=== PATIENT | female | born 1990 | race Caucasian/White ===

== ENCOUNTER 2018-08-04 17:24 | Emergency (ER) | payer BC ==
[~2018-08-04] VITALS: Ht 157.5 cm; Wt 50.8 kg
[2018-08-04 17:38] VITALS: BP 104/59
[2018-08-04] MEDS ORDERED: NKM (17:42)
--- NOTE | 2018-08-04 17:47 | NUR ---
ED Nurse Note: pt walked in due to neck pain. pt stated that she fell from stair last night and hit her neck. denies LOC. pt. did not feel last night but started having the pain today
--- NOTE | 2018-08-04 18:17 | Emergency Room Report ---
History of Present Illness General Chief Complaint: Multiple Trauma/Fall Source: Patient Present Illness HPI 27 YO old female presents to the emergency department complaining of 8 out of 10 in severity pain to the right side of her neck as well as right-sided upper back status post mechanical slip and fall yesterday. Patient reports that when she fell she slipped going down some stairs and landed on her back on the stairs. Patient reports previous history of C3-C4 injury that she has been receiving long-term physical therapy and steroid injections for. Patient states that this fall aggravated her pain she states that she typically attempts homeopathic remedies at home and does not have any medications available for her current symptoms. Pt. denies suspicion of fractures. Patient denies hitting her head she denies having a loss of consciousness she denies midline neck or back pain she states it is localized to the right side and radiates up and down the back. Patient reports her symptoms have been progressive initially starting in the neck but then progressing to the upper right side of her back as well. She denies nausea or vomiting. Denies numbness tingling or loss of sensation or gross motor movements of the extremities, incontinence of bowel or bladder. Denies CP, Palpitations, LOC, AMS , dizziness, Changes in Vision, weakness or a sudden severe headache. Allergies: Coded Allergies: No Known Allergies (Unverified , 08/04/18) Patient History Past Medical History: see triage record Past Surgical History: none Pertinent Family History: none Last Menstrual Period: jun Now: No : 1 Para: 0 Reviewed Nursing Documentation: PMH: Agreed; PSxH: Agreed Nursing Documentation-PMH Past Medical History: No Stated History Review of Systems All Other Systems: negative except mentioned in HPI Physical Exam Vital Signs Date Time Temp Pulse Resp B/P (MAP) Pulse Ox O2 Delivery O2 Flow Rate FiO2 08/04/18 17:38 74 16 Room Air 08/04/18 17:38 98.4 104/59 95 Sp02 EP Interpretation: reviewed, normal General Appearance: alert, GCS 15, non-toxic, mild distress Head: normocephalic, atraumatic Eyes: bilateral eye normal inspection, bilateral eye PERRL ENT: hearing grossly normal, normal voice Neck: full range of motion, no bony tend, tender lateral - right sided paracervical. no midline spinous process tenderness, FROM, no obvious laxity. Respiratory: chest non-tender, lungs clear, normal breath sounds, speaking full sentences Cardiovascular #1: regular rate, rhythm Musculoskeletal: back normal, gait/station normal, normal range of motion, tender - TTP to the right paraspinal musculature in the upper thoracic back as well. no midline spinous process tenderness, no step-offs or obvious deformities. Neurologic: alert, oriented x3, responsive, motor strength/tone normal, sensory intact, normal gait, speech normal, grossly normal Psychiatric: judgement/insight normal Skin: normal color, no rash, warm/dry, well hydrated Medical Decision Making PA Attestation Dr. Cordero is my supervising Physician whom patient management has been discussed with. Diagnostic Impression: Primary Impression: Cervical strain, acute Qualified Codes: S16.1XXA - Strain of muscle, fascia and tendon at neck level , initial encounter Additional Impressions: Muscle spasm Contusion Qualified Codes: S00.93XA - Contusion of unspecified part of head, initial encounter ER Course 27 YO old female presents to the emergency department complaining of 8 out of 10 in severity pain to the right side of her neck as well as right-sided upper back status post mechanical slip and fall yesterday. Patient reports that when she fell she slipped going down some stairs and landed on her back on the stairs. Patient reports previous history of C3-C4 injury that she has been receiving long-term physical therapy and steroid injections for. Patient states that this fall aggravated her pain she states that she typically attempts homeopathic remedies at home and does not have any medications available for her current symptoms. Pt. denies suspicion of fractures. Patient denies hitting her head she denies having a loss of consciousness she denies midline neck or back pain she states it is localized to the right side and radiates up and down the back. Patient reports her symptoms have been progressive initially starting in the neck but then progressing to the upper right side of her back as well. She denies nausea or vomiting. Denies numbness tingling or loss of sensation or gross motor movements of the extremities, incontinence of bowel or bladder. Denies CP, Palpitations, LOC, AMS , dizziness, Changes in Vision, weakness or a sudden severe headache. Ddx considered but are not limited to Fracture, dislocation, contusion, Head injury, Sprain/Strain/Spasm. Vital signs: are WNL, pt. is afebrile H&PE are most consistent with ST injury with contusion and muscle spasm of the right sided paraspinal musculature in the cervical and thoracic regions. No evidence to suggest emergent acute head injury, or spinal chord injury. ORDERS: - X-ray not required at this time. tenderness is lateral to the spinous processes. ED INTERVENTIONS: - Soma PO - Lidoderm TP -I do not identify an emergent condition at this time. With current presentation , pt. is stable for close outpatient follow up and conservative treatment. D/ w pt. to return promptly to ED with worsening or new symptoms.- Pt. verbalizes' understanding and agreement with proposed treatment plan. DISCHARGE: At this time pt. is stable for d/c to home. Will provide printed patient care instructions, and any necessary prescriptions. Care plan and follow up instructions have been discussed with the patient prior to discharge. Last Vital Signs Date Time Temp Pulse Resp B/P (MAP) Pulse Ox O2 Delivery O2 Flow Rate FiO2 08/04/18 17:38 98.4 74 16 95 Room Air 08/04/18 17:38 104/59 Disposition: HOME, SELF-CARE Condition: Stable Scripts Acetaminophen* (TYLENOL EXTRA STRENGTH*) 500 Mg Tablet 500 MG ORAL Q6H, #20 TAB 0 Refills Prov: Jerilyn Hollis 08/04/18 Lidocaine (Lidoderm) 1 Each Adh..patch 1 PATCH TOPIC DAILY, #30 PATCH 0 Refills Patch(es) may remain in place for up to 12 hours in any 24-hour period. Prov: Jerilyn Hollis 08/04/18 Methocarbamol* (ROBAXIN-750*) 750 Mg Tablet 750 MG PO QID for 7 Days, #28 TAB 0 Refills Prov: Jerilyn Hollis 08/04/18 Departure Forms: Return to Work Return to Work Date: August 08, 2018 Work Restrictions: No Heavy Lifting, No Prolonged Standing Other Restrictions: light duty x 1 week. May return Sooner if Symptoms have resolved. Return to Full Activity: August 15, 2018 Patient Instructions: Soft Tissue Injury of the Neck, [id number] Additional Instructions: Take medications as directed. Follow up with a Primary Care Provider in 3-5 days, even if your symptoms have resolved. --Please review list of primary care clinics, if you do not already have a primary care provider Return sooner to ED if new symptoms occur, or current symptoms become worse. Do not drink alcohol, drive, or operate heavy machinery while taking Robaxin ( Muscle Relaxers) as this may cause drowsiness. - Please note that this Emergency Department Report was dictated using [employer] software, occasionally this can lead to erroneous entry secondary to interpretation by the dictation equipment. Jerilyn Hollis August 04, 2018 18:17
[2018-08-04] MEDS ORDERED: TYLENOL EXTRA500 MG ORAL (18:19)
[2018-08-04] MEDS ORDERED: ROBAXIN-750750 MG PO (18:19)
[2018-08-04] MEDS ORDERED: LIDODERM700 M1 TOPIC (18:19)
[2018-08-04 18:24] VITALS: BP 112/69
--- NOTE | 2018-08-04 18:24 | NUR ---
ER DISCHARGE NOTE: Patient is cleared to be discharged per PA, pt is aox4, on room air, with stable vital signs. pt was given dc and prescription instructions, pt was able to verbalize understanding, pt id band removed. pt is able to ambulate with steady gait. pt took all belongings.
== END 2018-08-04 18:24 | disposition home or self-care (01) ==
LOC: EMR 18:00
DX: S16.1XXA Strain of muscle, fascia and tendon at neck level, initial encounter (principal); S00.93XA Contusion of unspecified part of head, initial encounter; M62.838 Other muscle spasm; W01.0XXA Fall on same level from slipping, tripping and stumbling without subsequent striking against object, initial encounter; Y92.9 Unspecified place or not applicable; M54.6 Pain in thoracic spine
CPT/HCPCS: 99282